=== PATIENT | female | born 1965 ===

== ENCOUNTER 2016-10-13 15:23 | Emergency (ER) | payer MEDICAID, MEDICARE ==
[2016-10-13 17:58] VITALS: BP 116/77
[2016-10-13] MEDS ORDERED: Ibuprofen TAB* 400 MG PO ONE (18:19)
--- NOTE | 2016-10-13 18:21 | UC ---
Head Injury HPI - HPI Summary HPI Summary: lifting heavy object in garage, lost balance or slipped, fell sideways. Slammed left cheek onto cupboard, then fell onto left hip on floor. Wonders if she was knocked out for a few seconds. Friend heard the crash, came right into the garage to ask if she was OK. She remembers this. Blurry vision at first, "felt stunned", but was able to get up and walk into house. Left hip bruise. Mild nausea, no vomiting. Accident occurred over 3 hrs ago now. Vision has cleared. No tinnitus. Mild headache since incident, unchanged after 2 tylenol. - History Of Current Complaint Chief Complaint: UCHeadInjury Stated Complaint: FELL-HEAD INJURY Time Seen by Provider: 10/13/16 17:45 Hx Obtained From: Patient Onset/Duration: Sudden Onset, Lasting Hours - 3 Severity Currently: Mild Severity Initially: Moderate Character: Dull, Pressure Aggravating Factor(s): Nothing Alleviating Factor(s): Nothing Associated Signs And Symptoms: Positive: LOC (Time In Secs./Mins/Hrs) - maybe a few seconds, unknown, Nausea - mild. Negative: Confusion, Memory Loss, Seizure , Epistaxis, Dental Malocclusion, Neck Pain, Vomiting - Risk Factors SDH Risk Factor: Negative - Allergies/Home Medications Allergies/Adverse Reactions: Allergies Allergy/AdvReac Type Severity Reaction Status Date / Time No Known Allergies Allergy Verified 10/13/16 17:47 Home Medications: Home Medications Acetaminophen TAB* [Tylenol TAB*] 650 mg PO Q4H PRN 10/13/16 [History Confirmed 10/13/16] Citalopram TAB* [CeleXA TAB*] 10 mg PO DAILY 10/13/16 [History Confirmed ] PMH/Surg Hx/FS Hx/Imm Hx Previously Healthy: Yes - Surgical History Surgical History: Yes Surgery Procedure, Year, and Place: APPENDECTOMY. GALL BLADDER REMOVAL . LEFT OVARIAN CYST REMOVED. TUBAL LIGATION. LUNG BS - Family History Known Family History: Positive: Hypertension - Social History Occupation: Employed Full-time Lives: With Family Alcohol Use: None Substance Use Type: None Smoking Status (MU): Former Smoker When Did the Patient Quit Smoking/Using Tobacco: QUIT 12 YEARS AGO Review of Systems Constitutional: Negative Skin: Bruising - left cheek, left hip Eyes: Blurred Vision - at first, now clear ENT: Negative Respiratory: Negative Cardiovascular: Negative Gastrointestinal: Negative Genitourinary: Negative Motor: Negative Neurovascular: Negative Musculoskeletal: Myalgia - left hip Neurological: Headache - mild Psychological: Negative All Other Systems Reviewed And Are Negative: Yes Physical Exam Triage Information Reviewed: Yes Appearance: Well-Appearing, No Pain Distress, Well-Nourished Vital Signs: Initial Vital Signs Temp 97.5 F 10/13/16 17:49 Pulse 81 10/13/16 17:49 Resp 18 10/13/16 17:49 BP 116/77 10/13/16 17:49 Pulse Ox 100 10/13/16 17:49 Vital Signs Reviewed: Yes Eye Exam: Normal Eyes: Positive: Conjunctiva Clear, Other: - flat fundi, discs with sharp margins ENT Exam: Normal ENT: Positive: Other: - no hemotympanum. Left maxillary area very tender Dental Exam: Normal Neck exam: Normal Neck: Positive: Supple, Nontender Respiratory Exam: Normal Cardiovascular Exam: Normal Musculoskeletal Exam: Other - tender left hip. No visible bruise or swelling. Pain over greater trochanter. Walking normally Neurological Exam: Normal Neurological: Positive: Alert, Muscle Tone Normal Psychological Exam: Normal Skin Exam: Normal Diagnostics - Laboratory Diagnostic Studies Completed/Ordered: facial xrays neg Head Injury Course/Dx - Differential Dx/Diagnosis Differential Diagnosis/HQI/PQRI: Cerebral Contusion, Contusion, Intracranial Bleed, Orbital Fracture, Skull Fracture Provider Diagnoses: facial and hip contusions Discharge - Discharge Plan Condition: Stable Disposition: HOME Prescriptions: Hydrocodone-Acetaminophen [Hydrocodone/Acetaminophen 5-325 mg] 1 - 2 tab PO Q6HR PRN #20 tab MDD 6 tab PRN Reason: Pain Patient Education Materials: Contusion in Adults (ED) Forms: *Work Release
--- NOTE | 2016-10-13 18:46 | RAD ---
HISTORY: Fall, trauma to face COMPARISONS: None VIEWS: 4, Zachary, Snyder, submental vertex, and lateral views of the face FINDINGS: BONE DENSITY: Normal. BONES: There is no displaced fracture. The zygomatic arches are intact. The orbital rim appears intact. JOINTS: There is no arthropathy. ALIGNMENT: There is no dislocation. SOFT TISSUES: Unremarkable. OTHER FINDINGS: The paranasal sinuses are clear IMPRESSION: NO DISPLACED FACIAL FRACTURE. IF THERE IS PERSISTENT CLINICAL CONCERN FOR FACIAL TRAUMA, CT MAY BE MORE SENSITIVE
== END 2016-10-13 19:21 | disposition home or self-care (01) ==
LOC: UCCORT 15:23
DX: S00.83XA Contusion of other part of head, initial encounter (principal); S70.02XA Contusion of left hip, initial encounter; W18.09XA Striking against other object with subsequent fall, initial encounter; Y93.89 Activity, other specified; Y92.015 Private garage of single-family (private) house as the place of occurrence of the external cause; Z90.49 Acquired absence of other specified parts of digestive tract; Z87.891 Personal history of nicotine dependence
CPT/HCPCS: 70150; 99202; A9270-GY; G0463